=== PATIENT | female | born 1985 | race Caucasian/White ===

== ENCOUNTER 2018-01-19 14:10 | Emergency (ER) | payer OTHER ==
[~2018-01-19] VITALS: Ht 162.6 cm; Wt 63.5 kg
[2018-01-19 14:29] VITALS: BP 129/72
--- NOTE | 2018-01-19 17:39 | PHYS DOC ---
Past History Past Medical History: No Pertinent History Past Surgical History: No Surgical History Alcohol Use: None Drug Use: None Adult General Chief Complaint Chief Complaint: ANIMAL BITE HPI HPI 32-year-old female presents after dog bite. The patient was cutting something over to her neighbor's house when she came around the corner and surprised the dog. The dog bit her on the right ankle one time. There are puncture vicente and one small half centimeter laceration. The dog is healthy. He had a checkup one month ago and is up-to-date on his vaccines. The patient is having 3 out of 10 pain that she describes as similar to a bruise. Bleeding is well controlled. The patient and her immediately washed the wounds with soap and water. Her tetanus is up-to-date. She has no other complaints or concerns. Review of Systems Review of Systems Constitutional: Denies fever or chills [] Eyes: Denies change in visual acuity, redness, or eye pain [] HENT: Denies nasal congestion or sore throat [] Respiratory: Denies cough or shortness of breath [] Cardiovascular: No additional information not addressed in HPI [] GI: Denies abdominal pain, nausea, vomiting, bloody stools or diarrhea [] : Denies dysuria or hematuria [] Musculoskeletal: Denies back pain or joint pain [] Integument: Pain right ankle[] Neurologic: Denies headache, focal weakness or sensory changes [] Endocrine: Denies polyuria or polydipsia [] All other systems were reviewed and found to be within normal limits, except as documented in this note. Allergies Allergies Allergies Coded Allergies Type Severity Reaction Last Updated Verified No Known Drug Allergies 01/19/18 No Physical Exam Physical Exam Constitutional: Well developed, well nourished, no acute distress, non-toxic appearance. [] HENT: Normocephalic, atraumatic, bilateral external ears normal, oropharynx moist, no oral exudates, nose normal. [] Eyes: PERRLA, EOMI, conjunctiva normal, no discharge. [] Neck: Normal range of motion, no tenderness, supple, no stridor. [] Cardiovascular:Heart rate regular rhythm, no murmur [] Lungs & Thorax: Bilateral breath sounds clear to auscultation [] Abdomen: Bowel sounds normal, soft, no tenderness, no masses, no pulsatile masses. [] Skin: Multiple puncture vicente to the right ankle. One extends as a 1/2cm laceration.. [] Back: No tenderness, no CVA tenderness. [] Extremities: No tenderness, no cyanosis, no clubbing, ROM intact, no edema. [] Neurologic: Alert and oriented X 3, normal motor function, normal sensory function, no focal deficits noted. [] Psychologic: Affect normal, judgement normal, mood normal. [] Current Patient Data Vital Signs Vital Signs Date Time Temp Pulse Resp B/P (MAP) Pulse Ox O2 Delivery O2 Flow Rate FiO2 01/19/18 14:29 116 22 99 Room Air EKG EKG [] Radiology/Procedures Radiology/Procedures [] Course & Med Decision Making Course & Med Decision Making Pertinent Labs and Imaging studies reviewed. (See chart for details) The patient has multiple puncture vicente on her leg. We cleansed them with a chlorhexidine saline solution. Given that these are puncture vicente, I will not suture the laceration. We will allow it to heal with secondary intention. Given the patient's status and the fact that he immediately cleaned the wound, I will not prescribe an antibiotic at this time. I have given the patient and her directions on what to look for regarding infection. If she has any concerns they will go to their PCP or return to the ED. [] Dragon Disclaimer Dragon Disclaimer This electronic medical record was generated, in whole or in part, using a voice recognition dictation system. Departure Departure: Impression: Primary Impression: Animal bite Disposition: HOME, SELF-CARE Condition: STABLE GERMAN BHAGAT DO January 19, 2018 17:39
== END 2018-01-19 15:16 | disposition home or self-care (01) ==
LOC: ER 14:10
DX: O9A.219 Injury, poisoning and certain other consequences of external causes complicating pregnancy, unspecified trimester (principal); S91.051A Open bite, right ankle, initial encounter; Z3A.00 Weeks of gestation of pregnancy not specified; W54.0XXA Bitten by dog, initial encounter; Y93.89 Activity, other specified; Y99.8 Other external cause status; Y92.89 Other specified places as the place of occurrence of the external cause
CPT/HCPCS: 99283